=== PATIENT | female | born 1985 | race Caucasian/White ===

== ENCOUNTER 2016-12-11 06:57 | Day surgery (SDC) | payer BC ==
[2016-12-11] MEDS ORDERED: Lidocaine 1%/Sod Bicarbonate in NS 8.4% 1 ML Syringe IV PRN (07:00)
[2016-12-11] MEDS ORDERED: Lactated Ringers 1,000 ML IV SCH (07:00)
[2016-12-11] MEDS ORDERED: Sodium Chloride 0.9% 10 ML Syringe FLUSH PRN (07:00)
[2016-12-11] MEDS ORDERED: Bupivacaine 0.5% 30 ML SDV ONE (07:20)
[2016-12-11] MEDS ORDERED: Midazolam 1 MG/ML 2 ML SDV ONE (07:33)
[2016-12-11] MEDS ORDERED: Ketamine 500 mg/10 ML MDV ONE (07:33)
[2016-12-11] MEDS ORDERED: fentaNYL 250 MCG/5 ML SDV ONE (07:33)
[2016-12-11] MEDS ORDERED: Propofol 200 MG/20 ML SDV ONE (07:33)
[2016-12-11] MEDS ORDERED: Lidocaine 1% 4 ML ONE (07:34)
[2016-12-11] MEDS ORDERED: Rocuronium 50 MG/5 ML Vial ONE (07:34)
[2016-12-11] MEDS ORDERED: Ondansetron 4 MG/2 ML SDV ONE (07:34)
[2016-12-11] MEDS ORDERED: Dexamethasone 4 MG/ML 5 ML MDV ONE (07:34)
--- NOTE | 2016-12-11 07:37 | PCM.PREANE ---
Preanesthetic Assessment - Anesthesia/Transfusion/Family Hx Anesthesia History: Prior Anesthesia Without Reaction Type of Anesthesia Reaction: Unknown Family History of Anesthesia Reaction: No Transfusion History: No Prior Transfusion(s) - Review of Systems General: No Symptoms Pulmonary: No Symptoms Cardiovascular: No Symptoms Gastrointestinal: No symptoms Neurological: No Symptoms Other: Reports: Thyroid Problems (hypothyroidism- controlled wit hemdication ) - Physical Assessment NPO Status Date: 12/10/16 NPO Status Time: 21:30 Pulse: 73 O2 Sat by Pulse Oximetry: 96 Respiratory Rate: 16 Blood Pressure: 116/71 Temperature: 36.6 C Height: 1.7 m Weight: 127.006 kg ASA Class: 2 Mental Status: Alert & Oriented x3 Airway Class: Mallampati = 1 Dentition: Reports: Dentures (upper ) Thyro-Mental Finger Breadths: 3 Mouth Opening Finger Breadths: 3 ROM/Head Extension: Full Lungs: Clear to auscultation, Normal respiratory effort Cardiovascular: Regular Rate, Regular Rhythm - Lab Values: Laboratory Last Values WBC 8.52 K/mm3 (3.98-10.04) 12/05/16 09:18 RBC 5.09 M/mm3 (3.98-5.22) 12/05/16 09:18 Hgb 14.1 gm/L (11.2-15.7) 12/05/16 09:18 Hct 42.8 % (34.1-44.9) 12/05/16 09:18 MCV 84.1 fl (79.4-94.8) 12/05/16 09:18 MCH 27.7 pg (25.6-32.2) 12/05/16 09:18 MCHC 32.9 g/dl (32.2-35.5) 12/05/16 09:18 RDW Std Deviation 44.0 fL (36.4-46.3) 12/05/16 09:18 Plt Count 265 K/mm3 (182-369) 12/05/16 09:18 MPV 10.6 fl (9.4-12.3) 12/05/16 09:18 Neut % (Auto) 63.4 % (34.0-71.1) 12/05/16 09:18 Lymph % (Auto) 28.5 % (19.3-51.7) 12/05/16 09:18 [place] % (Auto) 5.8 % (4.7-12.5) 12/05/16 09:18 Eos % (Auto) 2.1 (0.7-5.8) 12/05/16 09:18 Baso % (Auto) 0.1 % (0.1-1.2) 12/05/16 09:18 Neut # (Auto) 5.40 K/mm3 (1.56-6.13) 12/05/16 09:18 Lymph # (Auto) 2.43 K/mm3 (1.18-3.74) 12/05/16 09:18 [place] # (Auto) 0.49 K/mm3 (0.24-0.36) H 12/05/16 09:18 Eos # (Auto) 0.18 K/mm3 (0.04-0.36) 12/05/16 09:18 Baso # (Auto) 0.01 K/mm3 (0.01-0.08) 12/05/16 09:18 Urine Color Yellow (Yellow) 12/05/16 09:18 Urine Appearance Clear (Clear) 12/05/16 09:18 Urine pH 7.0 (5.0-8.0) 12/05/16 09:18 Ur Specific [place] 1.020 (1.005-1.030) 12/05/16 09:18 Urine Protein Negative (Negative) 12/05/16 09:18 Urine Glucose (UA) Negative (Negative) 12/05/16 09:18 Urine Ketones Negative (Negative) 12/05/16 09:18 Urine Occult Blood 2+ (Negative) H 12/05/16 09:18 Urine Nitrite Negative (Negative) 12/05/16 09:18 Urine Bilirubin Negative (Negative) 12/05/16 09:18 Urine Urobilinogen 0.2 (0.2-1.0) 12/05/16 09:18 Ur Leukocyte Esterase Negative (Negative) 12/05/16 09:18 Urine HCG, Qual Negative (NEGATIVE) 12/11/16 07:00 - Allergies Allergies/Adverse Reactions: Allergies Allergy/AdvReac Type Severity Reaction Status Date / Time No Known Allergies Allergy Verified 12/10/16 14:31 - Blood Blood Available: No Product(s) Available: None - Acknowledgements Anesthesia Type Planned: General Anesthesia Pt an Appropriate Candidate for the Planned Anesthesia: Yes Alternatives and Risks of Anesthesia Discussed w Pt/Guardian: Yes Pt/Guardian Understands and Agrees with Anesthesia Plan: Yes PreAnesthesia Questionnaire HEENT History: Reports: Other (see below) Other HEENT History: DENTURES Cardiovascular History: Reports: None Respiratory History: Reports: None Gastrointestinal History: Reports: GERD Genitourinary History: Reports: None 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 Other OB/BYN History: ovarian cysts, Amenorrhea, irregular menses, pelvic pain Musculoskeletal History: Reports: Other (see below) Other Musculoskeletal History: low back pain Neurological History: Reports: Migraines Psychiatric History: Reports: Depression Endocrine/Metabolic History: Reports: Hypothyroidism Hematologic History: Reports: None Immunologic History: Reports: None Oncologic (Cancer) History: Reports: None Dermatologic History: Reports: None - Past Surgical History Head Surgeries/Procedures: Reports: None Female Surgical History: Reports: section - SUBSTANCE USE Smoking Status *Q: Former Smoker Second Hand Smoke Exposure: No Recreational Drug Use History: No - HOME MEDS Home Medications: Home Meds Levothyroxine Sodium [Synthroid] 150 mcg PO DAILY 12/10/16 [History] - CURRENT (IN HOUSE) MEDS Current Meds: Current Medications Lactated Ringer's (Ringers, Lactated) 1,000 mls @ 125 mls/hr IV ASDIRECTED PAPO Stop: 12/11/16 23:00 Lidocaine/Sodium Bicarbonate (Buffered Lidocaine 1% In Ns 8.4%) 0.25 ml IV ONETIME PRN PRN Reason: Prior to IV Start Stop: 12/11/16 18:00 Sodium Chloride (Saline Flush) 10 ml FLUSH ASDIRECTED PRN PRN Reason: Keep Vein Open Stop: 12/11/16 18:00 Discontinued Medications Dexamethasone (Dexamethasone) Confirm Administered Dose 20 mg .ROUTE .STK-MED ONE Stop: 12/11/16 07:35 Fentanyl (Sublimaze) Confirm Administered Dose 250 mcg .ROUTE .STK-MED ONE Stop: 12/11/16 07:34 Lidocaine HCl (Xylocaine-Mpf 1%) Confirm Administered Dose 4 mls @ as directed .ROUTE .STK-MED ONE Stop: 12/11/16 07:35 Ketamine HCl (Ketalar) Confirm Administered Dose 500 mg .ROUTE .STK-MED ONE Stop: 12/11/16 07:34 Midazolam HCl (Versed 1 Mg/Ml) Confirm Administered Dose 2 mg .ROUTE .STK-MED ONE Stop: 12/11/16 07:34 Ondansetron HCl (Zofran) Confirm Administered Dose 4 mg .ROUTE .STK-MED ONE Stop: 12/11/16 07:35 Propofol (Diprivan 20 Ml) Confirm Administered Dose 200 mg .ROUTE .STK-MED ONE Stop: 12/11/16 07:34 Rocuronium [place] (Zemuron) Confirm Administered Dose 50 mg .ROUTE .STK-MED ONE Stop: 12/11/16 07:35
[2016-12-11] MEDS ORDERED: ceFAZolin 1 GM Vial ONE (07:54)
[2016-12-11] MEDS ORDERED: Meperidine PF 50 MG/ML Syringe IVPUSH PRN (08:26)
[2016-12-11] MEDS ORDERED: diphenhydrAMINE 50 MG/ML SDV IVPUSH PRN (08:26)
[2016-12-11] MEDS ORDERED: Ondansetron 4 MG/2 ML SDV IVPUSH PRN ×2 (08:26→08:57)
[2016-12-11] MEDS ORDERED: Neostigmine Methylsulfate 1 MG/ML 5 ML Syringe ONE (08:30)
[2016-12-11] MEDS ORDERED: HYDROmorphone 1 MG/ML Syringe ONE (08:41)
[2016-12-11] MEDS ORDERED: Acetaminophen/oxyCODONE 325-5 MG Tab PO PRN (08:57)
--- NOTE | 2016-12-11 09:09 | PCM.OPNOTE ---
- General Post-Op/Procedure Note Date of Surgery/Procedure: 12/11/16 Operative Procedure(s): Laparoscopy with lysis of tubo-ovarian adhesions, hysteroscopy with dilation and curettage Findings: The pelvis was found to be normal with the exception of the left fallopian tube and ovary were adhered together. The left ovary, normally found suspended behind the broad ligament, was adhered to the left fallopian tube area. There were significant varicosities within the pelvis right-side greater than left. The right tube, ovary and the left fallopian tube itself along with anterior and posterior cul-de-sacs were otherwise normal. The appendix appeared noninflamed and normal. Liver edge was normal. No other abnormalities were noted. Uterus is midline and normal in appearance. Pre Op Diagnosis: 1. Pelvic pain. 2. Irregular uterine bleeding. 3. Endometriosis history Post-Op Diagnosis: Same with left tubo-ovarian adhesions Anesthesia Technique: General ET tube Other Anesthesia Type: Marcaine 0.5% Prevacid 3-5 cc at each of 35 mm port sites abdominal Primary Surgeon: Hardeep Childers Secondary Surgeon: Jeff Alexandre Anesthesia Provider: Geronimo Nicholson Pathology: Endometrial curettings Fluid Replacement, Intraop: 1,000 Output, Urine Amount: 50 EBL in mLs: 5 Drain/Tube Comments:: Indwelling catheter during procedure only Complications: None Condition: Good Free Text/Narrative:: Surgery duration: 45 minutes Complications: None Specimens: Endometrial curettings Procedure: The patient was taken to the operating room and placed in the supine position on the operating table. She received 2 g of Ancef preoperatively for infection prophylaxis and had sequential compression stockings in place for DVT prophylaxis. After adequate general endotracheal anesthesia the patient was placed in a dorsal lithotomy position. She was prepped and draped in usual fashion. A [place] catheter was placed in the bladder and her later removed at the end of the procedure. A uterine manipulator was placed without problems. Laparoscopy was performed in a routine fashion. The infraumbilical, suprapubic and eventually right lateral 5 mm port sites were developed using Marcaine 0.5% 3-5 cc in each site. Verres needles placed in the infraumbilical site and pneumoperitoneum was established using approximately 2-1/2 L of CO2. Laparoscopic millimeter sleeve was placed and under direct visualization the other 2 sites were developed. The pelvis was evaluated, findings as above. Decision was made to take down the left tubo-ovarian adhesions. Unipolar cautery was then introduced and using a combination unipolar cautery and cutting currencies the adhesions were taken down. A small 2 x 3 cm piece of Interceed was then placed to decrease reforming of these adhesions. At this time the procedure was then discontinued. The laparoscope was used to visualize the ports as there removed. The upper port was removed after reversal pneumoperitoneum. Each of the port sites were closed with a single interrupted suture of 3-0 Monocryl. There further approximated with Dermabond skin glue. Hysteroscopy was then performed. The patient was placed back in dorsal lithotomy position from a modified dorsal lithotomy position. [place] catheter was removed. Weighted speculum was placed in the vagina. Cervix was grasped with a single-tooth tenaculum dilated to accommodate a 5 mm rigid 12 hysteroscope. Scope was placed and the uterine cavity was distended using normal saline. Small polypoid structure was noted on the posterior wall. Tubal ostia were noted. D&C was then performed with removal of small amount of tissue. The scope was then reintroduced. Another of nausea noted. Hysteroscopy was discontinued. Fluid and blood were evacuated from vagina, the cervix was released from its tenaculum and the section was removed. Patient returned to supine position. Sponge instrument needle counts are correct at the end of the procedure. Patient was awakened from general endotracheal anesthesia and discharged from the operating room in good condition.
--- NOTE | 2016-12-11 09:11 | PCM.POSTAN ---
POST ANESTHESIA ASSESSMENT - MENTAL STATUS Mental Status: alert, oriented - VITAL SIGNS Pulse Rate: 77 SaO2: 94 Resp Rate: 12 Blood Pressure: 104/73 Temperature: 36.1 C - RESPIRATORY Respiratory Status: respiratory rate WNL, airway patent, O2 saturation stable, supplemental oxygen - CARDIOVASCULAR CV Status: pulse rate WNL, blood pressure stable - GASTROINTESTINAL GI Status: no symptoms - PAIN Pain Score: 4 (opioid given) - POST OP HYDRATION Hydration Status: adequate & stable
[2016-12-11] MEDS ORDERED: Ketorolac 30 MG/ML SDV ONE (09:19)
[2016-12-11] MEDS ORDERED: HYDROmorphone 0.5 MG/0.5 ML Syringe IVPUSH PRN (09:30)
[2016-12-11] MEDS ORDERED: fentaNYL 100 MCG/2 ML SDV IVPUSH PRN (09:30)
[2016-12-11 11:05] VITALS: BP 118/57
--- NOTE | 2016-12-11 11:54 | PCM48HPAN ---
Post Anesthesia Note - EVALUATION WITHIN 48HRS OF ANESTHETIC Vital Signs in Normal Range: Yes Patient Participated in Evaluation: Yes Respiratory Function Stable: Yes Airway Patent: Yes Cardiovascular Function Stable: Yes Hydration Status Stable: Yes Pain Control Satisfactory: Yes Nausea and Vomiting Control Satisfactory: Yes Mental Status Recovered: Yes
== END 2016-12-11 11:35 | disposition home or self-care (01) ==
LOC: JD.SDS 06:57
PROVIDERS: ATTEND Obstetrics & Gynecology
DX: N85.00 Endometrial hyperplasia, unspecified (principal); F32.9 Major depressive disorder, single episode, unspecified; E03.9 Hypothyroidism, unspecified; K21.9 Gastro-esophageal reflux disease without esophagitis; Z87.891 Personal history of nicotine dependence; Z68.41 Body mass index [BMI] 40.0-44.9, adult; Z79.899 Other long term (current) drug therapy; Z98.890 Other specified postprocedural states
CPT/HCPCS: 36415; 58558; 58660; 81001; 81003; 81025; 85025; 88305; A9270; C1765; J0690; J1100; J1170; J1200; J1885; J2250; J2405; J2710; J3010; J7120; 00940; J2704

== ENCOUNTER 2017-02-26 07:36 | Day surgery (SDC) | payer BC ==
[~2017-02-26 07:36] MED LIST: Lactated Ringers 1,000 ML IV SCH; Lidocaine 1%/Sod Bicarbonate in NS 8.4% 1 ML Syringe PRN; Sodium Chloride 0.9% 10 ML Syringe FLUSH PRN
[2017-02-26] MEDS ORDERED: Bupivacaine 0.5% 30 ML SDV ONE (07:43)
[2017-02-26] MEDS ORDERED: fentaNYL 250 MCG/5 ML SDV ONE ×2 (08:22→08:26)
[2017-02-26] MEDS ORDERED: Ondansetron 4 MG/2 ML SDV ONE ×2 (08:22→09:36)
[2017-02-26] MEDS ORDERED: Midazolam 1 MG/ML 2 ML SDV ONE ×2 (08:22→08:26)
[2017-02-26] MEDS ORDERED: Dexamethasone 4 MG/ML SDV ONE (08:22)
[2017-02-26] MEDS ORDERED: Rocuronium 50 MG/5 ML Vial ONE ×2 (08:22→08:27)
[2017-02-26] MEDS ORDERED: Propofol 200 MG/20 ML SDV ONE ×2 (08:22→08:26)
[2017-02-26] MEDS ORDERED: ceFAZolin 1 GM Vial ONE ×3 (08:25→09:12)
--- NOTE | 2017-02-26 08:26 | PCM.PREANE ---
Preanesthetic Assessment - Procedure Proposed Procedure: Diagnostic Laparoscopy - Anesthesia/Transfusion/Family Hx Anesthesia History: Prior Anesthesia Without Reaction Family History of Anesthesia Reaction: No Transfusion History: No Prior Transfusion(s) - Review of Systems General: No Symptoms Pulmonary: No Symptoms Cardiovascular: Palpitations (a few months ago related to too much thyroid replacement. Med dosage decreased and Thyroid level rechecked after and is normal. neg ROS for thyroid sx today.) Gastrointestinal: No symptoms Neurological: No Symptoms Other: Reports: None, Easy Bruising - Physical Assessment NPO Status Date: 02/25/17 NPO Status Time: 23:15 O2 Sat by Pulse Oximetry: 97 Respiratory Rate: 16 Vital Signs: Last Vital Signs Temp 36.8 C 02/26/17 07:45 Pulse 79 02/26/17 07:45 Resp 16 02/26/17 07:45 BP 128/51 L 02/26/17 07:45 Pulse Ox 97 02/26/17 07:45 Height: 1.68 m Weight: 122.47 kg ASA Class: 2 Mental Status: Alert & Oriented x3 Airway Class: Mallampati = 2 Dentition: Reports: Dentures (upper) Thyro-Mental Finger Breadths: 3 Mouth Opening Finger Breadths: 3 ROM/Head Extension: Full Lungs: Clear to auscultation, Normal respiratory effort Cardiovascular: Regular Rate, Regular Rhythm, No Murmurs - Lab Values: Laboratory Last Values WBC 8.46 K/mm3 (3.98-10.04) 02/25/17 09:26 RBC 4.99 M/mm3 (3.98-5.22) 02/25/17 09:26 Hgb 13.8 gm/L (11.2-15.7) 02/25/17 09:26 Hct 41.6 % (34.1-44.9) 02/25/17 09:26 MCV 83.4 fl (79.4-94.8) 02/25/17 09:26 MCH 27.7 pg (25.6-32.2) 02/25/17 09:26 MCHC 33.2 g/dl (32.2-35.5) 02/25/17 09:26 RDW Std Deviation 40.5 fL (36.4-46.3) 02/25/17 09:26 Plt Count 219 K/mm3 (182-369) 02/25/17 09:26 MPV 10.6 fl (9.4-12.3) 02/25/17 09:26 Neut % (Auto) 62.3 % (34.0-71.1) 02/25/17 09:26 Lymph % (Auto) 26.7 % (19.3-51.7) 02/25/17 09:26 [place] % (Auto) 6.4 % (4.7-12.5) 02/25/17 09:26 Eos % (Auto) 4.1 (0.7-5.8) 02/25/17 09:26 Baso % (Auto) 0.4 % (0.1-1.2) 02/25/17 09: Neut # (Auto) 5.27 K/mm3 (1.56-6.13) 02/25/17 09:26 Lymph # (Auto) 2.26 K/mm3 (1.18-3.74) 02/25/17 09:26 [place] # (Auto) 0.54 K/mm3 (0.24-0.36) H 02/25/17 09:26 Eos # (Auto) 0.35 K/mm3 (0.04-0.36) 02/25/17 09:26 Baso # (Auto) 0.03 K/mm3 (0.01-0.08) 02/25/17 09:26 Urine Color Yellow (Yellow) 02/25/17 09:26 Urine Appearance Clear (Clear) 02/25/17 09:26 Urine pH 7.0 (5.0-8.0) 02/25/17 09:26 Ur Specific [place] 1.020 (1.005-1.030) 02/25/17 09:26 Urine Protein Negative (Negative) 02/25/17 09:26 Urine Glucose (UA) Negative (Negative) 02/25/17 09:26 Urine Ketones Negative (Negative) 02/25/17 09:26 Urine Occult Blood Trace-intact (Negative) H 02/25/17 09:26 Urine Nitrite Negative (Negative) 02/25/17 09:26 Urine Bilirubin Negative (Negative) 02/25/17 09:26 Urine Urobilinogen 0.2 (0.2-1.0) 02/25/17 09:26 Ur Leukocyte Esterase Trace (Negative) H 02/25/17 09:26 Urine HCG, Qual Negative (NEGATIVE) 02/25/17 09:26 - Allergies Allergies/Adverse Reactions: Allergies Allergy/AdvReac Type Severity Reaction Status Date / Time No Known Allergies Allergy Verified 02/25/17 14:02 - Acknowledgements Anesthesia Type Planned: General Anesthesia Pt an Appropriate Candidate for the Planned Anesthesia: Yes Alternatives and Risks of Anesthesia Discussed w Pt/Guardian: Yes Pt/Guardian Understands and Agrees with Anesthesia Plan: Yes PreAnesthesia Questionnaire HEENT History: Reports: Other (See Below) Other HEENT History: DENTURES Cardiovascular History: Reports: None Respiratory History: Reports: None Gastrointestinal History: Reports: GERD Genitourinary History: Reports: None [employer] MANAGER History: Reports: Endometriosis Other OB/BYN History: ovarian cysts, Amenorrhea, irregular menses, pelvic pain Musculoskeletal History: Reports: Other (See Below) Other Musculoskeletal History: low back pain Neurological History: Reports: Migraines Psychiatric History: Reports: Depression, Other (See Below) Other Psychiatric History: fatigue Endocrine/Metabolic History: Reports: Hypothyroidism, Obesity/BMI 30+ (BMI 44.5) , Vitamin D Deficiency Hematologic History: Reports: None Immunologic History: Reports: None Oncologic (Cancer) History: Reports: None Dermatologic History: Reports: None - Past Surgical History Head Surgeries/Procedures: Reports: None Female Surgical History: Reports: Section - SUBSTANCE USE Smoking Status *Q: Former Smoker (5 yr packhx. states occasionally still has a) Tobacco Use Within Last Twelve Months: Cigarettes (occasional) Second Hand Smoke Exposure: No Days Per Week of Alcohol Use: 2 Number of Drinks Per Day: 1 Total Drinks Per Week: 2 Recreational Drug Use History: No - HOME MEDS Home Medications: Home Meds Levothyroxine Sodium [Synthroid] 137 mcg PO DAILY 02/25/17 [History] Sertraline HCl [Sertraline HCl] 100 mg PO DAILY 02/25/17 [History] - CURRENT (IN HOUSE) MEDS Current Meds: Current Medications Lactated Ringer's (Ringers, Lactated) 1,000 mls @ 125 mls/hr IV ASDIRECTED PAPO Stop: 02/26/17 23:00 Last Admin: 02/26/17 08:05 Dose: 125 mls/hr Lidocaine/Sodium Bicarbonate (Buffered Lidocaine 1% In Ns 8.4%) 0.25 ml .XX ONETIME PRN PRN Reason: Prior to IV Start Stop: 02/26/17 18:00 Last Admin: 02/26/17 08:05 Dose: 0.25 ml Sodium Chloride (Saline Flush) 10 ml FLUSH ASDIRECTED PRN PRN Reason: Keep Vein Open Stop: 02/26/17 18:00 Discontinued Medications Bupivacaine HCl (Marcaine 0.5%) Confirm Administered Dose 30 ml .ROUTE .STK-MED ONE Stop: 02/26/17 07:44 Cefazolin Sodium (Ancef) Confirm Administered Dose 1 gm .ROUTE .STK-MED ONE Stop: 02/26/17 08:26 Cefazolin Sodium (Ancef) Confirm Administered Dose 1 gm .ROUTE .STK-MED ONE Stop: 02/26/17 08:26 Dexamethasone (Dexamethasone) Confirm Administered Dose 4 mg .ROUTE .STK-MED ONE Stop: 02/26/17 08:23 Fentanyl (Sublimaze) Confirm Administered Dose 250 mcg .ROUTE .STK-MED ONE Stop: 02/26/17 08:23 Fentanyl (Sublimaze) Confirm Administered Dose 250 mcg .ROUTE .STK-MED ONE Stop: 02/26/17 08:27 Lidocaine HCl (Xylocaine-Mpf 1%) Confirm Administered Dose 6 mls @ as directed .ROUTE .STK-MED ONE Stop: 02/26/17 08:28 Ketamine HCl (Ketalar) Confirm Administered Dose 500 mg .ROUTE .STK-MED ONE Stop: 02/26/17 08:28 Midazolam HCl (Versed 1 Mg/Ml) Confirm Administered Dose 2 mg .ROUTE .STK-MED ONE Stop: 02/26/17 08:23 Midazolam HCl (Versed 1 Mg/Ml) Confirm Administered Dose 2 mg .ROUTE .STK-MED ONE Stop: 02/26/17 08:27 Ondansetron HCl (Zofran) Confirm Administered Dose 4 mg .ROUTE .STK-MED ONE Stop: 02/26/17 08:23 Propofol (Diprivan 20 Ml) Confirm Administered Dose 200 mg .ROUTE .STK-MED ONE Stop: 02/26/17 08:23 Propofol (Diprivan 20 Ml) Confirm Administered Dose 200 mg .ROUTE .STK-MED ONE Stop: 02/26/17 08:27 Rocuronium [place] (Zemuron) Confirm Administered Dose 50 mg .ROUTE .STK-MED ONE Stop: 02/26/17 08:23 Rocuronium [place] (Zemuron) Confirm Administered Dose 50 mg .ROUTE .STK-MED ONE Stop: 02/26/17 08:28
[2017-02-26] MEDS ORDERED: Ketamine 500 mg/10 ML MDV ONE (08:27)
[2017-02-26] MEDS ORDERED: Lidocaine 1% 6 ML ONE (08:27)
[2017-02-26] MEDS ORDERED: fentaNYL 100 MCG/2 ML SDV IVPUSH PRN (09:34)
[2017-02-26] MEDS ORDERED: Acetaminophen/oxyCODONE 325-5 MG Tab PO PRN (09:54)
[2017-02-26] MEDS ORDERED: Ondansetron 4 MG/2 ML SDV IVPUSH PRN (09:54)
[2017-02-26] MEDS ORDERED: Lactated Ringers 1,000 ML ONE (09:55)
--- NOTE | 2017-02-26 10:04 | PCM.OPNOTE ---
- General Post-Op/Procedure Note Date of Surgery/Procedure: 02/26/17 Operative Procedure(s): Laparoscopy, lysis of pelvic adhesions Findings: Patient had omental adhesions and bowel epiploica adhesions to the left ovary and fallopian tube left ovary was somewhat kinked because of the adhesions. There were lateral adhesions between the ovary/fallopian tube and the pelvic sidewall. Ureter is mildly enlarged but had a corpus luteum cyst present. The right ovary and right fallopian tube are within normal limits. Uterus is within normal limits. The abdomen appendix appeared to be noninflamed. The liver edge and gallbladder were normal with the exception of possible fatty infiltration of the liver. Antrum posterior cul-de-sac so then a slightly increased presence of vascularity was within normal limits. Pre Op Diagnosis: Left lower quadrant pain Post-Op Diagnosis: left lower quadrant pain with left tubo-ovarian adhesions Anesthesia Technique: General ET tube Other Anesthesia Type: Marcaine 0.5% local in 3 incision sites Primary Surgeon: Hardeep Childers Secondary Surgeon: Jeff Alexandre Fluid Replacement, Intraop: 1,600 Output, Urine Amount: 250 EBL in mLs: 10 Drain/Tube Comments:: Indwelling bladder catheter during surgery only. Complications: None Condition: Good Free Text/Narrative:: Surgery duration: 33 minutes Complications: none Specimens: None Procedure: The patient was taken to the operating room and placed in the supine position on the operating table. She received 3 g of Ancef preoperatively for infection prophylaxis and had sequential compression stockings in place for DVT prophylaxis. After adequate general endotracheal anesthesia was placed the [place] catheter was placed into the bladder and the uterine manipulator was placed without problems. Infraumbilical area and suprapubic area were then infiltrated with Marcaine 0.5 % approximately 3-5 mL each. Eventually a left lateral port site was also developed. Suprapubic site was was 10 mm the other ports were 5 mm. Lap scope was placed. Findings were as described above. Decision made to lyse the adhesions of the left ovary and to leave the ovary in place. An endoseal cautery device was used to take down the adhesions. No significant bleeding was noted. Some lateral adhesions between the ovary/fallopian tube and the pelvic sidewall were also taken down. There was some irregularity to the left fallopian tube because of intrinsic scarring. This was not corrected. I do believe this possible places the patient at somewhat higher risk for left ectopic . The fimbriated ends 42 however looked normal. At this point the procedure was then discontinued the lower sleeve and left C were removed under direct visualization. Pneumoperitoneum was reversed. The fascial layer of the suprapubic incision was closed with a [id number] suture of 0 Vicryl. All skin incisions were closed with 3-0 Monocryl in a subcuticular fashion. They were all further approximated with Dermabond skin glue. The patient was awakened from general endotracheal anesthesia after the uterine manipulator and the [place] catheter were removed. She was discharged in good condition.
--- NOTE | 2017-02-26 10:10 | PCM.POSTAN ---
POST ANESTHESIA ASSESSMENT - MENTAL STATUS Mental Status: alert, oriented - VITAL SIGNS Pulse Rate: 100 SaO2: 97 (2L NCO2) Resp Rate: 14 Blood Pressure: 113/70 Temperature: 36.4 C - RESPIRATORY Respiratory Status: respiratory rate WNL, airway patent, O2 saturation stable - CARDIOVASCULAR CV Status: pulse rate WNL, blood pressure stable - GASTROINTESTINAL GI Status: no symptoms - PAIN Pain Score: 6 - POST OP HYDRATION Hydration Status: adequate & stable
[2017-02-26] MEDS ORDERED: LORazepam 2 MG/ML MDV IVPUSH PRN (10:13)
[2017-02-26] MEDS ORDERED: LORazepam 2 MG/ML MDV ONE (10:16)
[2017-02-26 12:00] VITALS: BP 121/63
[2017-02-27] MEDS ORDERED: SERTRALINE HCL 100 MG PO SCH (09:00)
== END 2017-02-26 12:13 | disposition home or self-care (01) ==
LOC: JD.SDS 07:36
PROVIDERS: ATTEND Obstetrics & Gynecology
DX: N73.6 Female pelvic peritoneal adhesions (postinfective) (principal); K21.9 Gastro-esophageal reflux disease without esophagitis; F32.9 Major depressive disorder, single episode, unspecified; E03.9 Hypothyroidism, unspecified; Z79.899 Other long term (current) drug therapy; Z98.890 Other specified postprocedural states; Z87.891 Personal history of nicotine dependence
CPT/HCPCS: 36415; 58660; 81003; 81025; 85025; A9270; J0690; J2060; J2250; J2405; J3010; J7120; 00840; C1765; J1100; J2704